=== PATIENT | female | born 1990 | race Caucasian/White ===

== ENCOUNTER 2017-03-09 11:26 | Emergency (ER) | payer SELFPAY ==
[2017-03-09 11:31] VITALS: BP 113/71; BMI 25.0
[2017-03-09] MEDS ORDERED: TORADOL 60 MG VIAL IM ONE (12:03)
--- NOTE | 2017-03-09 12:03 | DR.GENAD ---
HPI - PCP Primary Care Physician: none - Complaint/Symptoms Chief Complaint:: pt has a abcess tooth on the right side and she dont have the money to get it pulled right now the pain is making her jaw and ear hurt in the right side - Source History Provided: Patient - Mode of Arrival Mode of Arrival: Ambulatory - Timing Onset of Chief Complaint: 03/06/17 PMH - PMH Past Medical History: No Past Surgical History: No - Family History History of Family Medical Conditions: No - Social History Does patient currently use any type of tobacco product: Yes Have you used tobacco products in the last 12 months: Yes Type of Tobacco Use: Cigarettes How many years tobacco product used: 1 Does any household member use tobacco: No Alcohol Use: None Do you use any recreational Drugs:: No Lives With: Family Lives Where: Home - infectious screening In the last 2 months have you had wt loss of >10#?: NO Have you had fever, night sweats or hemotysis?: No Have you traveled outside the country in the last 6 months?: No Isolation: Standard ROS - Review of Systems Constitutional: No Symptoms Reported. negative: Diaphoresis Eyes: No Symptoms Reported, See HPI ENTM: No Symptoms Reported Respiratoy: No Symptoms Reported Cardiovascular: No Symptoms Reported Gastrointestinal/Abdominal: No Symptoms Reported Genitourinary: No Symptoms Reported Neurological: No Symptoms Reported Musculoskeletal: No Symptoms Reported Integumentary: No Symptoms Reported Hematologic/Lymphatic: No Symptoms Reported Endocrine: No Symptoms Reported Psychiatric: No Symptoms Reported All Other Systems: Reviewed and Negative PE - Vital Signs Vitals: Temperature 98.2 F Pulse Rate 88 Respiratory Rate 18 Blood Pressure 113/71 O2 Sat by Pulse Oximetry 113 - General Limitations: No Limitations General Appearance: Alert, In No Apparent Distress - Eyes Eye exam: Normal Appearance, PERRL - ENT ENT Exam: Normal Exam, Normal Oropharynx External Ear Exam: Normal External Inspection TM/Canal Exam: Bilateral Normal Nose Exam: Normal Nose Exam Mouth Exam: Normal Inspection, Other (tooth #28 cavity) Throat Exam: Normal Inspection - Neck Neck Exam: Normal Inspection - Chest Chest Inspection: Normal Inspection - Respiratory Respiratory Exam: Normal Lung Sounds Bilat Respiratory Exam: Bilateral Clear to Auscultation - Cardiovascular Cardiovascular Exam: Regular Rate, Normal Rhythm - Extremities Extremities Exam: Normal Inspection - Back Back Exam: Normal Inspection - Neurologic Neurological Exam: Alert, Oriented X3, CN II-XII Intact - Psychiatric Psychiatric Exam: Normal Affect, Normal Mood - Skin Skin Exam: Warm, Dry - Diagnosis Discharge Problem: Toothache - Discharge Plan Condition: Stable - Follow ups/Referrals Follow ups/Referrals: NFD,None [Primary Care Provider] - 3 days - Instructions
[2017-03-09] MEDS ORDERED: TORADOL 60 MG VIAL ONE (12:19)
== END 2017-03-09 12:26 | disposition home or self-care (01) ==
LOC: ER 11:36
DX: K08.89 Other specified disorders of teeth and supporting structures (principal)
CPT/HCPCS: 96372; 99281; 99282; J1885

== ENCOUNTER 2017-07-02 13:43 | Emergency (ER) | payer SELFPAY ==
[2017-07-02 13:51] VITALS: BP 118/70; BMI 25.0
[2017-07-02] MEDS ORDERED: NS 1000 ML 1,000 ML IV ONE (14:49)
[2017-07-02] MEDS ORDERED: TYLENOL 500 MG TAB EXTRA STRENGTH PO ONE (14:49)
[2017-07-02] MEDS ORDERED: ZOFRAN INJ 4 MG VIAL IVP ONE (14:49)
[2017-07-02] MEDS ORDERED: TORADOL 30 MG VIAL IVP ONE (14:50)
--- NOTE | 2017-07-02 14:50 | DR.GENAD ---
HPI - PCP Primary Care Physician: NFD - Complaint/Symptoms Chief Complaint Doctors Comments: Patient states that she has had vomitng and diarrhea for one week, with muscle aches and pain. Diarrhea for a few days. Chief Complaint:: PT C/O N/V, BODY ACHES, FEVER, H/A, AND DIZZINESS. PT STATES HER SYMPTOMS STARTED THIS PAST TUESDAY, BUT THEY ARE NOT GETTING ANY BETTER. PT STATES SHE HAS BEEN TAKING TYLENOL AND MOTRIN FOR THE FEVER. Self Treatment fo Chief Complaint: TYLENOL AND MOTRIN - Source History Provided: Patient - Mode of Arrival Mode of Arrival: Ambulatory - Timing Onset of Chief Complaint: 06/28/17 PMH - PMH Past Medical History: Yes Past Medical History Comment: KIDNEY FAILURE Past Surgical History: Yes Past Surgical History Comment: TUBALIGATION - Family History History of Family Medical Conditions: No - Social History Does patient currently use any type of tobacco product: Yes Have you used tobacco products in the last 12 months: Yes Type of Tobacco Use: Cigarettes Does any household member use tobacco: Yes Alcohol Use: Rarely Do you use any recreational Drugs:: No Lives With: Family Lives Where: Home - infectious screening In the last 2 months have you had wt loss of >10#?: NO Have you had fever, night sweats or hemotysis?: No Have you traveled outside the country in the last 6 months?: No Isolation: Standard ROS - Review of Systems Eyes: No Symptoms Reported ENTM: No Symptoms Reported Respiratoy: No Symptoms Reported Cardiovascular: No Symptoms Reported Gastrointestinal/Abdominal: Diarrhea, Nausea, Vomiting Genitourinary: No Symptoms Reported Neurological: No Symptoms Reported Musculoskeletal: No Symptoms Reported Integumentary: No Symptoms Reported Hematologic/Lymphatic: No Symptoms Reported Endocrine: No Symptoms Reported Psychiatric: No Symptoms Reported All Other Systems: Reviewed and Negative PE - Vital Signs Vitals: Temperature 100.3 F Pulse Rate 117 Respiratory Rate 18 Blood Pressure 118/70 O2 Sat by Pulse Oximetry 98 - General Limitations: Language Barrier General Appearance: Alert, In No Apparent Distress - Head Head Exam: Normal Inspection, Atraumatic - Eyes Eye exam: Normal Appearance, PERRL, EOMI - ENT ENT Exam: Normal Exam External Ear Exam: Normal External Inspection TM/Canal Exam: Bilateral Normal Nose Exam: Normal Nose Exam, Sinus Tenderness Mouth Exam: Normal Inspection Throat Exam: Normal Inspection - Chest Chest Inspection: Normal Inspection, Symmetric Chest Wall Rise - Respiratory Respiratory Exam: Normal Lung Sounds Bilat Respiratory Exam: Bilateral Clear to Auscultation - Cardiovascular Cardiovascular Exam: Regular Rate, Normal Rhythm - Abdominal Exam Abdominal Exam: Normal Inspection, Normal Bowel Sounds - Extremities Extremities Exam: Normal Inspection - Back Back Exam: Normal Inspection, Full ROM - Neurologic Neurological Exam: Alert, Oriented X3, CN II-XII Intact - Skin Skin Exam: Warm, Dry, Intact Course - Reevaluation 1st: Improved ROR - Labs Reviewed Laboratory Results Reviewed?: Yes (UA: 1+ketones,Nitrites+1;Leuk3+, wbc 30-45) Laboratory: 07/02/17 15:33 Throat Throat Culture - Final 07/02/17 15:33 Urine,Clean Catch Urine Culture - Final Escherichia Coli Specimen Type Clean catch urine 07/02/17 15:33 Urine Color Yellow (YELLOW) 07/02/17 15:33 Urine Appearance Slightly hazy (CLEAR) 07/02/17 15:33 Urine pH 6.0 (5.0 - 8.0) 07/02/17 15:33 Ur Specific [place] 1.005 (1.000-1.030) 07/02/17 15:33 Urine Protein 2+ (NEGATIVE) 07/02/17 15:33 Urine Glucose (UA) Negative (NEGATIVE) 07/02/17 15:33 Urine Ketones 1+ (NEGATIVE) 07/02/17 15:33 Urine Occult Blood 1+ (NEGATIVE) 07/02/17 15:33 Urine Nitrite Positive (NEGATIVE) 07/02/17 15:33 Urine Bilirubin Negative (NEGATIVE) 07/02/17 15:33 Urine Urobilinogen 1+ (NORMAL) 07/02/17 15:33 Ur Leukocyte Esterase 2+ (NEGATIVE) 07/02/17 15:33 Urine RBC 01 - 03 /HPF (NEGATIVE) 07/02/17 15:33 Urine WBC 30 - 45 with clumps /HPF (NEGATIVE) 07/02/17 15:33 Ur Squamous Epith Cells Many /HPF (NEGATIVE) 07/02/17 15:33 Amorphous Sediment Trace /HPF (NEGATIVE) 07/02/17 15:33 Urine Bacteria 2+ /HPF (NEGATIVE) 07/02/17 15:33 Ur Culture Indicated? Yes/culture set up 07/02/17 15:33 Influenza A (H1N1) PCR Not detected (NOT DETECT) 07/02/17 15:33 Influenza Type A (PCR) Negative (NEGATIVE) 07/02/17 15:33 Influenza Type B (PCR) Negative (NEGATIVE) 07/02/17 15:33 Streptococcus Screen Negative (NEGATIVE) 07/02/17 15:33 - Diagnosis Discharge Problem: Acute gastroenteritis UTI (urinary tract infection) Qualifiers: Urinary tract infection type: acute cystitis Hematuria presence: without hematuria Qualified Code(s): N30.00 - Acute cystitis without hematuria - Discharge Plan Disposition: 01 HOME, SELF-CARE Condition: Stable Prescriptions: Sulfamethoxazole-Trimethoprim [BACTRIM DS TAB 800/160 MG *] 1 tab PO BID #20 tab - Follow ups/Referrals Follow ups/Referrals: NFD,None [Primary Care Provider] - 3 days - Instructions Instructions: Urinary Tract Infection, Adult, [id number]
[2017-07-02] MEDS ORDERED: NS 1000 ML 1,000 ML ONE (15:09)
[2017-07-02] MEDS ORDERED: TORADOL 30 MG VIAL ONE (15:10)
[2017-07-02] MEDS ORDERED: ZOFRAN INJ 4 MG VIAL ONE (15:10)
--- NOTE | 2017-07-02 15:33 | RAD ---
Portable chest Indication: Fever Comparison: May 22, 2016 Impression: Heart size is normal. The lungs are clear without edema, effusion, pneumothorax, or focal consolidati on to suggest pneumonia. Reported By:
[2017-07-02 15:44] LABS: BILIRUBIN,URINE NEGATIVE (NEGATIVE); BLOOD/HEMOGLOBIN,URINE 1+ (NEGATIVE); GLUCOSE, URINE NEGATIVE (NEGATIVE); KETONES,URINE 1+ (NEGATIVE); LEUKOCYTE ESTERASE ,URINE 2+ (NEGATIVE); NITRITES,URINE POSITIVE (NEGATIVE); PROTEIN,URINE 2+ (NEGATIVE); UROBILINOGEN,URINE 1+ (NORMAL)
[2017-07-02 15:52] LABS: APPEARANCE,URINE SLIGHTLY HAZY (CLEAR); COLOR,URINE YELLOW (YELLOW)
[2017-07-02 16:11] LABS: BACTERIA,URINE 2+ /HPF (NEGATIVE); SQUAMOUS EPITHELIAL CELL,UR MANY /HPF (NEGATIVE)
[2017-07-02 16:12] LABS: AMORPHOUS SEDIMENT,UR TRACE /HPF (NEGATIVE)
[2017-07-02] MEDS ORDERED: ROCEPHIN VIAL 1 GM 1 GM in NS 50 ML IV + SPIKE MINIBAG* 50 ML IV SCH (16:15)
[2017-07-02] MEDS ORDERED: ROCEPHIN 1 GM IV PREMIX * OUT OF STOCK 50 ML IV ONE (16:19)
== END 2017-07-02 17:03 | disposition home or self-care (01) ==
LOC: ER 13:57
DX: K52.89 Other specified noninfective gastroenteritis and colitis (principal); N30.00 Acute cystitis without hematuria; B96.29 Other Escherichia coli [E. coli] as the cause of diseases classified elsewhere
CPT/HCPCS: 71010; 81001; 87070; 87086; 87088; 87186; 87502; 87503; 87880; 96365; 96374; 96375; 99283; A4222; J0696; J1885; J2405